=== PATIENT | male | born 1955 | race Hispanic/Latino ===

== ENCOUNTER 2017-06-16 16:15 | Emergency (ER) | payer OTHER ==
[~2017-06-16] VITALS: Ht 157.5 cm; Wt 71.0 kg
[~2017-06-16 16:15] MED LIST: BACTRIM DS1 TAB PO; NAPROSYN500 MG PO
[2017-06-16 17:06] LABS: HEMATOCRIT 45.2 % (39.0-50.0); HEMOGLOBIN 15.4 g/dl (14.0-18.0); IMMATURE GRANULOCYTES 0.2 % (0.0-1.0); MEAN CELL VOLUME 91.9 fL CALC (80.0-100.0); MEAN CORPUSCULAR HGB 31.3 pG CALC (26.0-32.0); MEAN CORPUSCULAR HGB CONC 34.1 g/L CALC (32.0-36.0); NEUT# 2.93 thou/uL (1.82-7.42); RED BLOOD COUNT 4.92 mill/uL (4.70-6.10); RED CELL DISTRI WIDTH 12.2 % (11.5-15.5)
[2017-06-16 17:21] LABS: ANION GAP 16 (6-22 (CALC)); BUN 15 mg/dL (8-23); BUN/CREATININE RATIO 14 (12-20 (CALC)); CARBON DIOXIDE 24 mmol/l (22-30); CHLORIDE 109 mmol/l (95-108); CREATININE 1.1 mg/dL (0.7-1.3); GFR > 60 ML/MIN (>=60 (CALC)); GFR FOR AFR.AMER. > 60 ML/MIN (>=60 (CALC)); POTASSIUM 4.3 mmol/l (3.5-5.1); SODIUM 145 mmol/l (137-146)
[2017-06-16] MEDS ORDERED: LINEZOLID600 MG PO (18:35)
[2017-06-16] MEDS ORDERED: AUGMENTIN875TAB PO (18:35)
[2017-06-16 20:10] VITALS: BP 154/82
[2017-06-17] MEDS ORDERED: BACTRIM DS1 TAB PO (15:13)
== END 2017-06-16 20:11 | disposition home or self-care (01) | DRG 603 ==
LOC: ED 16:15
PROVIDERS: Family Medicine
DX: L03.211 Cellulitis of face (principal); R22.0 Localized swelling, mass and lump, head; R50.9 Fever, unspecified
CPT/HCPCS: J2020; Q9967

== ENCOUNTER 2017-06-17 14:38 | Emergency (ER) | payer OTHER ==
[~2017-06-17] VITALS: Ht 157.5 cm; Wt 70.6 kg
[~2017-06-17 14:38] MED LIST changes: +AUGMENTIN875TAB PO; +LINEZOLID600 MG PO
[2017-06-17 15:12] VITALS: BP 131/81
[2017-06-17] MEDS ORDERED: BACTRIM DS1 TAB PO (15:13)
== END 2017-06-17 15:20 | disposition home or self-care (01) | DRG 603 ==
LOC: ED 14:38
DX: L03.211 Cellulitis of face (principal)

== ENCOUNTER 2022-07-09 13:35 | Emergency (ER) | payer MEDICARE, OTHER ==
[~2022-07-09] VITALS: Ht 157.5 cm; Wt 74.0 kg
[2022-07-09] MEDS ORDERED: CIPROFLOXACN500 MG PO (14:42)
[2022-07-09] MEDS ORDERED: KEFLEX500 MG PO (14:42)
[2022-07-09 15:23] VITALS: BP 131/77
== END 2022-07-09 15:32 | disposition home or self-care (01) ==
LOC: ED 13:35
DX: S91.332A Puncture wound without foreign body, left foot, initial encounter (principal); W45.0XXA Nail entering through skin, initial encounter